=== PATIENT | male | born 1970 | race Caucasian/White ===

== ENCOUNTER 2016-12-14 11:06 | Emergency (ER) | payer BC ==
--- NOTE | 2016-12-14 11:11 | ER Document Report ---
ED Medical Screen (RME) - General Stated Complaint: KNEE PAIN Mode of Arrival: Ambulatory Information source: Patient Notes: Patient presents to the emergency department with left knee pain. He reports he twisted it last night. Has a history of knee replacement last October. I have greeted and performed a rapid initial assessment of this patient. A comprehensive ED assessment and evaluation of the patient, analysis of test results and completion of the medical decision making process will be conducted by additional ED providers. TRAVEL OUTSIDE OF THE [place] IN LAST 30 DAYS: No - Related Data Allergies/Adverse Reactions: codeine Allergy (Verified 12/14/16 11:09) moxifloxacin [From Avelox] Allergy (Verified 12/14/16 11:09) Past Medical History - Past Medical History Cardiac Medical History: Reports: Hx Hypertension Past Surgical History: Reports: Hx Orthopedic Surgery
[2016-12-14 11:12] VITALS: BP 146/90
--- NOTE | 2016-12-14 12:11 | ER Document Report ---
HPI - HPI Pain Level: 3 Context: Patient is a 46-year-old male presents emergency Department complaining of left knee pain. Patient states that he has had a total left knee replacement over a year ago. Patient states last night he was walking when he twisted on his left knee and has pain along the lateral aspect of the left knee. Patient is able to ambulate. Admits to swelling and pain. Otherwise denies any numbness or tingling in the lower extremity. Has medical history significant for Carmona's esophagus, history of diabetes, retention Goes to [facility] in [place] PCP is Dr. Jin - NUB[place] Skin Color: Normal Past Medical History - General Information source: Patient - Social History Smoking Status: Current Some Day Smoker Chew tobacco use (# tins/day): Yes - 1p/3 days Frequency of alcohol use: None Drug Abuse: None Family History: Reviewed & Not Pertinent Patient has suicidal ideation: No Patient has homicidal ideation: No - Past Medical History Cardiac Medical History: Reports: Hx Hypertension Renal/ Medical History: Denies: Hx Peritoneal Dialysis Past Surgical History: Reports: Hx Orthopedic Surgery Vertical Provider Document - CONSTITUTIONAL Agree With Documented VS: Yes Exam Limitations: No Limitations General Appearance: WD/WN, No Apparent Distress - INFECTION CONTROL TRAVEL OUTSIDE OF THE [place] IN LAST 30 DAYS: No - RESPIRATORY O2 Sat by Pulse Oximetry: 99 - CARDIOVASCULAR Cardiovascular: Regular Rate, Regular Rhythm, No Murmur Pulses: Normal: Radial, Dorsalis pedis - MUSCULOSKELETAL/EXTREMETIES Musculoskeletal/Extremeties: MAEW, FROM, Tender - lateral aspect of the knee, Edema - no erthema, no pitting edema Notes: no evidence of erythema, concern for infection - NEURO Level of Consciousness: Awake, Alert, Appropriate Motor/Sensory: No Motor Deficit, No Sensory Deficit - DERM Integumentary: Warm, Dry, No Rash Course - Re-evaluation Re-evalutation: 12/14/16 12:07 Patient is a 46-year-old who presents emergency Department with left knee pain. Patient is a history of the left TKA. At this time patient's knee does not reveal any evidence of deformity. X-ray does not reveal any evidence of fracture but does show joint effusion. Patient states that he has existing joint effusion. No need to drain at this time given no concern for gout or septic arthritis. Effusion is consistent with injury that happened yesterday. Patient is able to ambulate. Will discharge patient home with instruction to follow up with his PCP later this week in follow-up with orthopedic as needed - Vital Signs Vital signs: Temp Pulse Resp BP Pulse Ox 97.7 F 116 H 20 146/90 H 99 12/14/16 11:10 12/14/16 11:10 12/14/16 11:10 12/14/16 11:10 12/14/16 11:10 - Diagnostic Test Radiology reviewed: Image reviewed, Reports reviewed Discharge - Discharge Clinical Impression: Left knee pain Qualifiers: Chronicity: acute Qualified Code(s): M25.562 - Pain in left knee Condition: Good Disposition: HOME, SELF-CARE Instructions: Ice & Elevation ([facility]), Acetaminophen, Oral Narcotic Medication ( [facility]) Additional Instructions: Please be sure to follow-up with your primary care physician at the end of this coming week to evaluate your knee Prescriptions: Oxycodone HCl/Acetaminophen [Percocet 5-325 mg Tablet] 1 - 2 tab PO Q4H PRN #15 tablet PRN Reason:
== END 2016-12-14 12:12 | disposition home or self-care (01) ==
LOC: ER 11:06
DX: M25.562 Pain in left knee (principal); F17.210 Nicotine dependence, cigarettes, uncomplicated
CPT/HCPCS: 99283

== ENCOUNTER 2017-03-16 10:33 | Emergency (ER) | payer BC ==
[2017-03-16 10:37] VITALS: BP 163/88
--- NOTE | 2017-03-16 11:45 | RADIOLOGY REPORT (SQ) ---
EXAM DESCRIPTION: KNEE LEFT 3 VIEWS COMPLETED DATE/TIME: 03/16/2017 11:29 am REASON FOR STUDY: pain COMPARISON: 12/14/2016. NUMBER OF VIEWS: Three views. TECHNIQUE: AP, lateral, and sunrise patella radiographic images acquired of the left knee. LIMITATIONS: None. FINDINGS: MINERALIZATION: Normal. BONES: No acute fracture or dislocation. Stable knee prosthesis. No worrisome bone lesions. JOINT: No effusion. SOFT TISSUES: No soft tissue swelling. No radio-opaque foreign body. OTHER: No other significant finding. IMPRESSION: STABLE KNEE PROSTHESIS. NO ACUTE FINDINGS. TECHNICAL DOCUMENTATION: JOB ID: [id number] [employer]- All Rights Reserved
--- NOTE | 2017-03-16 12:07 | ER Document Report ---
ED Extremity Problem, Lower - General Chief Complaint: Knee Pain Stated Complaint: LEFT KNEE PAIN Time Seen by Provider: 03/16/17 10:40 Information source: Patient TRAVEL OUTSIDE OF THE [place] IN LAST 30 DAYS: No - Related Data Allergies/Adverse Reactions: codeine Allergy (Verified 03/16/17 11:08) moxifloxacin [From Avelox] Allergy (Verified 03/16/17 11:08) Past Medical History - General Information source: Patient - Social History Smoking Status: Current Some Day Smoker Chew tobacco use (# tins/day): No Frequency of alcohol use: None Drug Abuse: None Family History: Reviewed & Not Pertinent Patient has suicidal ideation: No Patient has homicidal ideation: No - Past Medical History Cardiac Medical History: Reports: Hx Hypertension Renal/ Medical History: Denies: Hx Peritoneal Dialysis Musculoskeltal Medical History: Reports Hx Arthritis Past Surgical History: Reports: Hx Orthopedic Surgery - lt knee replacement x 3 , last 10/2015 - Immunizations Hx Diphtheria, Pertussis, Tetanus Vaccination: Yes Immunizations Comment: + pneu vacx Review of Systems - Review of Systems Constitutional: No symptoms reported EENT: No symptoms reported Cardiovascular: No symptoms reported Respiratory: No symptoms reported Gastrointestinal: No symptoms reported Genitourinary: No symptoms reported Male Genitourinary: No symptoms reported Musculoskeletal: No symptoms reported Skin: No symptoms reported Hematologic/Lymphatic: No symptoms reported Neurological/Psychological: No symptoms reported Physical Exam - Vital signs Vitals: Temp Pulse Resp BP Pulse Ox 98.2 F 93 16 163/88 H 100 03/16/17 10:34 03/16/17 10:34 03/16/17 10:34 03/16/17 10:34 03/16/17 10:34 Interpretation: Normal - General General appearance: Appears well, Alert - HEENT Head: Normocephalic, Atraumatic Eyes: Normal Pupils: PERRL - Respiratory Respiratory status: No respiratory distress Chest status: Nontender Breath sounds: Normal Chest palpation: Normal - Cardiovascular Rhythm: Regular Heart sounds: Normal auscultation Murmur: No - Abdominal Inspection: Normal Distension: No distension Bowel sounds: Normal Tenderness: Nontender Organomegaly: No organomegaly - Back Back: Normal, Nontender - Extremities General upper extremity: Normal inspection, Nontender, Normal color, Normal ROM , Normal temperature General lower extremity: Normal inspection, Nontender, Normal color, Normal ROM , Normal temperature, Normal weight bearing. No: Gera's sign - Neurological Neuro grossly intact: Yes Cognition: Normal Orientation: AAOx4 [place] Coma Scale Eye Opening: Spontaneous Suzanne Coma Scale Verbal: Oriented [place] Coma Scale Motor: Obeys Commands [place] Coma Scale Total: 15 Speech: Normal Motor strength normal: LUE, RUE, LLE, RLE Sensory: Normal - Psychological Associated symptoms: Normal affect, Normal mood - Skin Skin Temperature: Warm Skin Moisture: Dry Skin Color: Normal Course - Vital Signs Vital signs: Temp Pulse Resp BP Pulse Ox 98.2 F 93 16 163/88 H 100 03/16/17 10:34 03/16/17 10:34 03/16/17 10:34 03/16/17 10:34 03/16/17 10:34 - Diagnostic Test Radiology reviewed: Image reviewed, Reports reviewed Discharge - Discharge Clinical Impression: Knee buckling Qualifiers: Laterality: left Qualified Code(s): M25.362 - Other instability, left knee Disposition: HOME, SELF-CARE Additional Instructions: Kidney Injury You have a kidney injury. The injury does not seem to be serious, and should heal by itself. Kidney injuries are treated with rest. The first 24 hours after the injury , bed rest is usually recommended. You should not play sports or do vigorous physical activity for a few days until all blood is cleared from the urine. The doctor will advise you when it's safe. Drink plenty of fluids (at least three quarts per day), unless the physician has advised you otherwise. This washes the blood away, lessening the risk of painful clots forming. You should return for further care if you develop lightheadedness, fever, increasingly severe flank pain, or inability to urinate. Follow-up with private doctor in 1 to 2 days for final radiology readings please return to the emergency room for any change worsening condition. Follow up with private M.D. for all other routine health care needs. Prescriptions: Hydrocodone/Acetaminophen [[place] 5-325 Tablet] 1 each PO Q4 PRN #20 tablet PRN Reason: Naproxen Sodium [Naproxen Sodium ER] 500 mg PO Q12 PRN #20 tablet.sa PRN Reason:
== END 2017-03-16 13:00 | disposition home or self-care (01) ==
LOC: ER 10:33
DX: M25.362 Other instability, left knee (principal); M25.562 Pain in left knee; F17.200 Nicotine dependence, unspecified, uncomplicated
CPT/HCPCS: 99283